=== PATIENT | male | born 1970 | race Caucasian/White ===

== ENCOUNTER 2022-07-07 10:05 | Inpatient (IN) | payer BC ==
[2022-07-07 10:31] VITALS: BMI 25.7
[2022-07-07] MEDS ORDERED: ONDANSETRON *ODT* 4 MG TABLET SL PRN (10:46)
[2022-07-07] MEDS ORDERED: COLLOIDAL OATMEAL 1 BAR EACH TP PRN (10:46)
[2022-07-07] MEDS ORDERED: hydrOXYzine PAMOATE 25 MG CAPSULE (FP) PO PRN (10:46)
[2022-07-07] MEDS ORDERED: ACETAMINOPHEN 325 MG TABLET (FP) PO PRN (10:46)
[2022-07-07] MEDS ORDERED: MAG HYDROX/AL HYDROX/SIMETH 30 ML UNIT-DOSE CUP PO PRN (10:46)
[2022-07-07] MEDS ORDERED: METHOCARBAMOL 500 MG TABLET PO PRN (10:46)
[2022-07-07] MEDS ORDERED: guaiFENesin 600 MG TABLET.ER (FP) PO PRN (10:46)
[2022-07-07] MEDS ORDERED: MAGNESIUM HYDROX 2400MG/30ML ORAL SUSPENSION 30 ML CUP PO PRN (10:46)
[2022-07-07] MEDS ORDERED: POLYETHYLENE GLYCOL (HEALTHYLAX) 3350 17 GM PACKET PO PRN (10:46)
[2022-07-07] MEDS ORDERED: P-EPHED 60MG/TRIPROLIDI 2.5MG TABLET PO PRN (10:46)
[2022-07-07] MEDS ORDERED: BENZOCAINE/MENTHOL (CHLORASEPTIC ) LOZENGE MM PRN (10:46)
[2022-07-07] MEDS ORDERED: DICYCLOMINE HCL 10 MG CAPSULE PO PRN (10:46)
[2022-07-07] MEDS ORDERED: MELATONIN 5 MG TABLETS PO PRN (10:46)
[2022-07-07] MEDS ORDERED: METOPROLOL TARTRATE 25 MG TABLET (FP) PO ONE (10:46)
[2022-07-07] MEDS ORDERED: IBUPROFEN 600 MG TABLET (FP) PO PRN (10:46)
[2022-07-07] MEDS ORDERED: IBUPROFEN 400 MG TABLET (FP) PO PRN (10:46)
[2022-07-07] MEDS ORDERED: BENZONATATE 200 MG CAPSULE PO PRN (10:46)
[2022-07-07] MEDS ORDERED: LOPERAMIDE HCL 2 MG CAPSULE PO PRN (10:46)
[2022-07-07] MEDS ORDERED: chlordiazePOXIDE HCL 25 MG CAPSULE PO PRN (10:48)
[2022-07-07] MEDS ORDERED: METOPROLOL TARTRATE 25 MG TABLET (FP) ONE (12:08)
[2022-07-07] MEDS: chlordiazePOXIDE HCL 25 MG CAPSULE PO SCH ×2 (17:54→22:13)
[2022-07-07] MEDS: THIAMINE HCL 100 MG TABLET (FP) PO SCH (22:13)
[2022-07-07] MEDS: SUVOREXANT 5 MG TABLET PO PRN (22:14)
[2022-07-08] MEDS: BISMUTH SUBSALICYLATE 262 MG/15 ML BTL PO PRN ×2 (00:28→22:21)
[2022-07-08] MEDS: chlordiazePOXIDE HCL 25 MG CAPSULE PO SCH ×5 (05:28→22:17)
[2022-07-08] MEDS: PRENATAL VITAMINS W/ FOLIC ACID TABLET (FP) PO SCH (10:33)
[2022-07-08 11:09] LABS: ALBUMIN 4.2 g/dl (3.4-5.0); BLOOD UREA NITROGEN 15.6 mg/dL (7-18); CALCIUM 9.7 mg/dL (8.5-10.1)
[2022-07-08 11:12] LABS: CREATININE 0.9 mg/dL (0.55-1.3)
[2022-07-08 11:13] LABS: HEMATOCRIT 47.4 % (35.4-49); HEMOGLOBIN 16.8 GM/dL (11.7-16.9); MCH 33.3 pg (25.7-33.7); MCHC 35.4 g/dl (32.0-35.9); MEAN CELL VOLUME 94.2 fl (80-96); MEAN PLT VOLUME 9.1 fl (7.5-11.1); PLATELET COUNT 198 10^3/uL (134-434); RBC 5.03 M/mm3 (4.00-5.60); RDW 12.7 % (11.9-15.9)
[2022-07-08 11:14] LABS: BILIRUBIN,TOTAL 0.3 mg/dL (0.2-1); TOT PROT 7.6 g/dl (6.4-8.2)
[2022-07-08] MEDS: SUVOREXANT 5 MG TABLET PO PRN (22:17)
[2022-07-08] MEDS: THIAMINE HCL 100 MG TABLET (FP) PO SCH (22:17)
[2022-07-09] MEDS: chlordiazePOXIDE HCL 25 MG CAPSULE PO SCH ×4 (05:36→22:20)
[2022-07-09] MEDS: PRENATAL VITAMINS W/ FOLIC ACID TABLET (FP) PO SCH (10:17)
[2022-07-09] MEDS: SUVOREXANT 5 MG TABLET PO PRN (22:19)
[2022-07-09] MEDS: THIAMINE HCL 100 MG TABLET (FP) PO SCH (22:19)
[2022-07-10] MEDS ORDERED: chlordiazePOXIDE HCL 10 MG CAPSULE PO PRN
[2022-07-10] MEDS ORDERED: chlordiazePOXIDE HCL 10 MG CAPSULE PO SCH (05:00)
[2022-07-10 06:35] VITALS: BP 112/71; PULSE 80; RESP 18; TEMP 96.9
[2022-07-11] MEDS ORDERED: chlordiazePOXIDE HCL 10 MG CAPSULE PO SCH (05:00)
[2022-07-12] MEDS ORDERED: chlordiazePOXIDE HCL 10 MG CAPSULE PO ONE (05:00)
== END 2022-07-10 09:13 | disposition home or self-care (01) | DRG 897 ==
LOC: YASAS 10:05 → Y3N 12:09
PROVIDERS: ADMIT Allergy & Immunology; ATTEND Surgery
PROC: HZ2ZZZZ Detoxification Services for Substance Abuse Treatment (ICD-10-PCS; principal; 2022-07-07)
DX: F10.230 Alcohol dependence with withdrawal, uncomplicated (principal); F41.9 Anxiety disorder, unspecified; F32.A Depression, unspecified; M54.2 Cervicalgia; M54.50 Low back pain, unspecified; G89.29 Other chronic pain; Z62.810 Personal history of physical and sexual abuse in childhood; Z88.2 Allergy status to sulfonamides; Z87.19 Personal history of other diseases of the digestive system
CPT/HCPCS: 36415; 80053; 85027; 86780; C9803-CS; U0003; U0005